=== PATIENT | female | born 2000 | race African-American/Black ===

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

== ENCOUNTER 2020-04-07 21:24 | Emergency (ER) | payer SELFPAY | END 2020-04-07 21:46 | disposition home or self-care (01) | LOC: ERS 21:24 | DX: M25.512 Pain in left shoulder (principal); Z79.899 Other long term (current) drug therapy | CPT/HCPCS: 99283 ==

== ENCOUNTER 2020-06-21 22:19 | Emergency (ER) | payer SELFPAY | END 2020-06-21 23:30 | disposition home or self-care (01) | LOC: ERS 22:19 | DX: S29.012A Strain of muscle and tendon of back wall of thorax, initial encounter (principal); F17.210 Nicotine dependence, cigarettes, uncomplicated; X50.0XXA Overexertion from strenuous movement or load, initial encounter | CPT/HCPCS: 99283 ==

== ENCOUNTER 2021-08-22 23:16 | Emergency (ER) | payer SELFPAY ==
[2021-08-23] MEDS ORDERED: Dexamethasone 10 MG/ML VIAL ONE (00:09)
[2021-08-23 10:21] LABS: SARS-CoV-2 PCR by NAA Not Detected (NotDetected)
== END 2021-08-23 00:28 | disposition home or self-care (01) ==
LOC: ERS 23:16
DX: J06.9 Acute upper respiratory infection, unspecified (principal); F17.210 Nicotine dependence, cigarettes, uncomplicated; Z20.822 Contact with and (suspected) exposure to COVID-19
CPT/HCPCS: 71045; J1100; U0003; U0005

== ENCOUNTER 2025-04-20 13:39 | Emergency (ER) | payer SELFPAY | END 2025-04-20 14:35 | disposition home or self-care (01) | LOC: ERS 13:39 | DX: K08.89 Other specified disorders of teeth and supporting structures (principal); F17.290 Nicotine dependence, other tobacco product, uncomplicated | CPT/HCPCS: 99282 ==